=== PATIENT | male | born 1965 | race African-American/Black ===

== ENCOUNTER 2019-05-01 22:25 | Emergency (ER) | payer MEDICAID ==
[~2019-05-01] VITALS: Ht 185.4 cm; Wt 93.0 kg
[2019-05-02] MEDS ORDERED: SODIUM CHLORIDE 0.9% 1,000 ML IV ONE (00:19)
[2019-05-02] MEDS ORDERED: METOCLOPRAMIDE HCL 10MG/2ML VIAL IV ONE (00:30)
[2019-05-02] MEDS ORDERED: DIPHENHYDRAMINE 50MG/ML VIAL IV ONE (00:30)
[2019-05-02 00:48] LABS: BASOPHILS % 0.9 % (0.0-2.0); EOSINOPHILS % 0.6 % (0.0-5.0); HEMATOCRIT. 36.7 % (42.0-52.0); HEMOGLOBIN. 11.9 g/dL (14.0-18.0); LYMPHOCYTES % 16.6 % (20.0-50.0); MEAN CORPUSCULAR HEMOGLOBIN 27.5 pg (28.0-32.0); MEAN PLATELET VOLUME 7.6 fl (7.4-10.4); MONOCYTES % 6.3 % (2.0-8.0); NEUTROPHILS % 75.6 % (40.0-76.0); PLATELET 280 x1000/uL (130-400); RED BLOOD CELL COUNT 4.32 mill/uL (4.7-6.1); RED CELL DISTRIBUTION WIDTH 13.7 % (11.6-14.6)
[2019-05-02 00:50] LABS: CHLORIDE 98 mEq/L (98-107)
[2019-05-02 02:18] LABS: *AMPHETAMINES SCREEN URINE NEGATIVE (NEGATIVE); *BARBITURATES SCREEN URINE NEGATIVE (NEGATIVE); *BENZODIAZEPINES SCREEN URINE NEGATIVE (NEGATIVE); *COCAINE SCREEN URINE NEGATIVE (NEGATIVE); METHADONE URINE SCREEN NEGATIVE (NEGATIVE)
[2019-05-02 02:19] LABS: CANNABINOID URINE SCREEN NEGATIVE (NEGATIVE); OPIATES URINE SCREEN NEGATIVE (NEGATIVE); PHENCYCLIDINE URINE SCREEN NEGATIVE (NEGATIVE)
[2019-05-02] MEDS ORDERED: IOHEXOL-350 100 ML BOTTLE ONE (02:41)
[2019-05-02 04:45] VITALS: BP 130/71
== END 2019-05-02 04:45 | disposition home or self-care (01) ==
LOC: ER 22:25
DX: R51 Headache (principal); R53.1 Weakness; R11.0 Nausea; F15.10 Other stimulant abuse, uncomplicated
CPT/HCPCS: 36415; 70496; 80053; 80305; 85025; 96374; 96375; 99284; J1200; J2765; J7030; Q9967; Z7610